=== PATIENT | female | born 1985 | race Hispanic/Latino ===

== ENCOUNTER 2021-07-01 09:14 | Emergency (ER) | payer SELFPAY | END 2021-07-01 10:25 | disposition home or self-care (01) | LOC: ERS 09:14 | DX: M54.2 Cervicalgia (principal); R51.9 Headache, unspecified; I10 Essential (primary) hypertension; Z79.899 Other long term (current) drug therapy | CPT/HCPCS: 99283 ==

== ENCOUNTER 2023-09-05 09:54 | Emergency (ER) | payer SELFPAY ==
[2023-09-05] MEDS ORDERED: Lidocaine 1% PF 5 ML VIAL ONE (10:14)
== END 2023-09-05 11:13 | disposition home or self-care (01) ==
LOC: ERS 09:54
DX: S61.211A Laceration without foreign body of left index finger without damage to nail, initial encounter (principal); I10 Essential (primary) hypertension; W29.3XXA Contact with powered garden and outdoor hand tools and machinery, initial encounter
CPT/HCPCS: 12001; 99283

== ENCOUNTER 2023-09-12 12:19 | Emergency (ER) | payer SELFPAY | END 2023-09-12 12:55 | disposition home or self-care (01) | LOC: ERS 12:19 | DX: S61.219D Laceration without foreign body of unspecified finger without damage to nail, subsequent encounter (principal); I10 Essential (primary) hypertension; X58.XXXD Exposure to other specified factors, subsequent encounter ==